=== PATIENT | male | born 1945 | race Hispanic/Latino ===

== ENCOUNTER → 2021-07-09 | Outpatient (CLI) | payer OTHER | END | disposition home or self-care (01) | LOC: RAH 07-01 08:37 | PROVIDERS: ATTEND Internal Medicine | DX: K21.9 Gastro-esophageal reflux disease without esophagitis (principal); K44.9 Diaphragmatic hernia without obstruction or gangrene; R13.10 Dysphagia, unspecified | CPT/HCPCS: 74240 ==